=== PATIENT | male | born 1980 | race American Indian/Alaskan Native ===

== ENCOUNTER → 2018-03-13 09:55 | Outpatient (CLI) | payer OTHER, SELFPAY ==
--- NOTE | 2018-03-13 | DI.RAD.S_ITS ---
PROCEDURE: XR CHEST 2V INDICATIONS: COUGH,HISTORY OF SMOKING TECHNIQUE: 2 views of the chest were acquired. COMPARISON: [facility], , CHEST 1 VIEW, 01/20/2017, 15:13. FINDINGS: Surgical changes and devices: None. Lungs and pleura: No pleural effusions or pneumothorax. Lungs are clear. Mediastinum: Mediastinal contours are normal. Heart size is normal. Bones and chest wall: No suspicious bony abnormalities. Soft tissues appear unremarkable. IMPRESSION: Normal. Dictated by: Jairo Fernandes M.D. on 03/13/2018 at 10:25 Approved by: Jairo Fernandes M.D. on 03/13/2018 at 10:26
== END ==
PROVIDERS: PCP Family Medicine; Visit Provider Family Medicine
DX: R05 Cough (principal); Z87.891 Personal history of nicotine dependence
CPT/HCPCS: 71046

== ENCOUNTER → 2020-06-02 16:08 | Outpatient (CLI) | payer OTHER, SELFPAY ==
--- NOTE | 2020-06-02 | DI.RAD.S_ITS ---
PROCEDURE: XR LUMBAR SPINE 2-3V INDICATIONS: LUMBAR STRAIN TECHNIQUE: 3 views of the lumbar spine were acquired. COMPARISON: [facility], , L-SPINE MINIMUM 4 VIEWS, 12/09/2016, 8:49. FINDINGS: Bones: 5 [id number] vertebrae are present. There is normal bony alignment. No vertebral body compression fractures. No suspicious bony lesions. There has been a mild degree of interval worsening of the moderately severe degenerative disc disease at L5-S1. Facet osteoarthritis at this level is [id number]. Soft tissues: Overlying bowel gas pattern is normal. No suspicious soft tissue calcifications. IMPRESSION: Interval worsening of the degenerative changes at the L5-S1 disc level, from November of 2016. No significant worsening in facet osteoarthritis. No compression fracture is seen. There may be spinal and foraminal stenosis at L5-S1. Dictated by: Jairo Fernandes M.D. on 06/02/2020 at 17:04 Approved by: Jairo Fernandes M.D. on 06/02/2020 at 17:05
== END ==
PROVIDERS: PCP Family Medicine; Referring Provider Family Medicine; Visit Provider Family Medicine
DX: M47.817 Spondylosis without myelopathy or radiculopathy, lumbosacral region (principal); M48.07 Spinal stenosis, lumbosacral region
CPT/HCPCS: 72100

== ENCOUNTER 2020-06-08 19:17 | Emergency (ER) | payer OTHER, SELFPAY ==
[2020-06-08 19:24] VITALS: BP 151/101; PULSE 88; RESP 16; TEMP 37; O2SAT 95; BMI 38.4
[2020-06-08 19:52] LABS: Add Manual Diff / Slide Review NO; Basophils Absolute Auto 0 /uL (0-100); Basophils Percent Auto 0.8 % (0-2); Eosinophils Absolute Auto 100 /uL (0-450); Eosinophils Percent Auto 1.5 % (2-4); Hematocrit 47.9 % (41-53); Hemoglobin 16.4 g/dL (13.5-17.5); Lymphocytes Absolute Auto 2400 /uL (1100-4500); Lymphocytes Percent Auto 40.2 % (25-40); Mean Corpuscular HGB Conc 34.2 % (30-36); Mean Corpuscular Hemoglobin 34.3 PG (26-34); Mean Corpuscular Volume 100.1 fL (80-100); Monocytes Absolute Auto 500 /uL (0-900); Neutrophils Absolute Auto 2900 /uL (1500-7000); Neutrophils Percent Auto 48.5 % (50-75); Platelet Count 167 X10^3/uL (150-400); Red Blood Cell Count 4.79 X10^6/uL (4.5-5.9); Red Cell Distribution Width 14.3 % (11.6-14.8)
[2020-06-08 20:04] LABS: UR Morphine/Opiate cutoff 300 Negative (Negative); Ur Creatinine Normal (Normal); Ur Specific Gravity Normal (Normal); Urine Amphetamines Negative (Negative); Urine Barbiturates Negative (Negative); Urine Benzodiazepines Negative (Negative); Urine Cocaine Negative (Negative); Urine MDMA Negative (Negative); Urine Methadone Negative (Negative); Urine Methamphetamines Negative (Negative); Urine Oxycodone Negative (Negative); Urine Phencyclidine Negative (Negative); Urine Tetrahydrocannabinol Negative (Negative); Urine Tricyclic Antidepressant Negative (Negative); Urine pH Normal (Normal)
[2020-06-08 20:05] LABS: Acetaminophen < 10 ug/mL (10-30); Alanine Aminotransferase 148 IU/L (<50); Albumin 4.6 g/dL (3.5-5.0); Albumin Globulin Ratio 1.2 (1.0-2.8); Alkaline Phosphatase 77 U/L (38-126); Aspartate Aminotransferase 196 IU/L (17-59); BUN Creatinine Ratio 22.4 (6-22); Bilirubin Total 0.6 mg/dL (0.2-1.3); Bilirubin Unconjugated 0.4 mg/dL (0.0-1.1); Blood Urea Nitrogen 13 mg/dL (9-20); Calcium 8.5 mg/dL (8.4-10.2); Carbon Dioxide 27 mmol/L (22-32); Chloride 103 mmol/L (98-107); Estimated Glomerular Filt Rate > 60.0 mL/min (>60); Ethanol (ETOH) 283 mg/dL; Globulin 3.7 g/dL (1.7-4.1); Glucose 110 mg/dL (70-100); HEMOLYSIS < 15 (0-50); Lactate (Lactic Acid) 1.8 mmol/L (0.7-2.1); Potassium 3.7 mmol/L (3.4-5.1); Salicylate < 1.0 mg/dL (<20); Sodium 141 mmol/L (137-145); Total Protein 8.3 g/dL (6.3-8.2)
--- NOTE | 2020-06-08 20:21 | ED.MEDCLEAR ---
HPI - Medical Clearance General Chief complaint: Medical Clearance Stated complaint: ALCOHOL DETOX Time Seen by Provider: 06/08/20 19:20 Source: patient Mode of arrival: Ambulatory Limitations: no limitations History of Present Illness HPI Narrative: 40-year-old male daily smoker with history of significant alcohol abuse presents with his in the chief complaint of alcohol abuse and a request for medical clearance prior to heading over to an alcohol detox program. The patient has been drinking a pt of liquor and multiple beers daily for many months. He has quit on his own in the past has gone through mild withdrawal symptoms but has never been hospitalized and has never had seizures. Additionally, he has never requested alcohol detox or rehab before. He complains of some mild headache and agitation but no other significant symptoms. His last consumption was approximately 1 hour prior to his arrival. He did call ahead and there are beds available, they asked for medical clearance 1st MD complaint: medical clearance requested Onset (ago): hour(s) Reason for Medical Clearance: intoxication Place: home Alleged Intoxication: Yes Compliant with Home Medications: Yes Treatments Prior to Arrival: none Related Information Home Medications Medication Instructions Recorded Confirmed ACETAMINOPHEN PO Q6HP PRN #0 01/20/17 Previous Rx's Medication Instructions Recorded ibuprofen 800 mg PO TIDP PRN #60 tab 12/09/16 ibuprofen 800 mg PO Q6HP PRN #40 tab 01/20/17 albuterol sulfate 90 mcg/actuation 2 inhalation INHALATION Q6-8H PRN 03/02/18 aerosol inhaler #18 gram azithromycin 250 mg tablet See Rx Instructions PO .COMPLEX #6 03/02/18 tab epinephrine 0.3 mg/0.3 mL 0.3 ml SUBCUT ONCE #2 each 03/02/18 injection, auto-injector ibuprofen 800 mg tablet 800 mg PO TID PRN #90 tab 03/02/18 methylprednisolone 4 mg tablets in See Rx Instructions PO PER PKG DIR 03/02/18 a dose pack #21 each lorazepam [Ativan] See Rx Instructions .ROUTE 06/08/20 .COMPLEX #19 tab Allergies Allergy/AdvReac Type Severity Reaction Status Date / Time bee venom protein (honey bee) Allergy Severe Swelling, Verified 06/08/20 19:26 Review of Systems Constitutional Constitutional: Denies chills, Denies fatigue, Denies fever(s), Denies frequent falls, Denies lethargy and Denies weakness Eyes Eyes: Denies change in vision, Denies eye discharge, Denies irritation and Denies loss of vision ENT Ears, Nose, Mouth, and Throat: Denies change in voice, Denies dizziness, Denies neck pain, Denies sore throat and Denies throat swelling Cardiovascular Cardiovascular: Denies chest pain, Denies irregular heart rhythm, Denies lightheadedness, Denies palpitations, Denies dyspnea, Denies dyspnea on exertion and Denies orthopnea Respiratory Respiratory: Denies cough, Denies dyspnea, Denies dyspnea on exertion and Denies wheezing Gastrointestinal Gastrointestinal: Denies abdominal pain, Denies change in bowel habits, Denies diarrhea, Denies nausea and Denies vomiting Musculoskeletal Musculoskeletal: Denies neck pain and Denies numbness Integumentary/Breasts Skin/Breast: Denies pruritus, Denies erythema, Denies rash and Denies wounds Neurologic Neurologic: Denies behavioral changes, Denies confusion, Denies dizziness, Denies frequent falls, Denies loss of vision, Denies numbness and Denies weakness Psychiatric Psychiatric: Denies anxiety, Denies behavioral changes, Denies confusion, Denies depression, Denies homicidal ideation and Denies suicidal ideation Endocrine Endocrine: Denies fatigue, Denies flushing and Denies palpitations Hematologic/Lymphatic Hematologic/Lymphatic: Denies easy bruising Allergic/Immunologic Allergic/Immunologic: Denies urticaria, Denies throat swelling and Denies wheezing Patient History Medical History Anxiety Arthritis Hand fracture (04/2007) Surgical History Hx of hand surgery (05/2007) Family History Father COPD (chronic obstructive pulmonary disease) Mother No problems noted. Brother No problems noted. Social History Smoking Status: Current every day smoker Tobacco: How many years used: 20 alcohol intake: current (1-2 beers a day, if any.) Smoking Status: Current every day smoker alcohol intake frequency: 3 or more drinks per day Alcohol type: beer and hard liquor Substance Use Type: does not use Exam Narrative Exam Narrative: GENERAL: [40] year old patient appears stated age. Well-nourished, well-developed patient, in mild distress. HEAD: Atraumatic. Normocephalic. EYES: Pupils equal round and reactive. Extraocular motions intact. No scleral icterus. No injection or drainage. ENT: Nose without bleeding, purulent drainage. Throat without erythema, tonsillar hypertrophy or exudate. Airway patent. NECK: Trachea midline. Non tender CARDIOVASCULAR: Regular rate and rhythm without murmurs, gallops, or rubs. RESPIRATORY: Clear to auscultation. Breath sounds equal bilaterally. No wheezes, rales, or rhonchi. GASTROINTESTINAL: Abdomen soft, non-tender, nondistended. EXTREMITIES: No edema or joint tenderness. BACK: Nontender without deformity or crepitance. No flank tenderness. NEURO: AOx3. SKIN: No rash or erythema of visible areas Initial Vital Signs Initial Vital Signs: Vital Signs Temperature 98.6 F 06/08/20 19:24 Pulse Rate 88 06/08/20 19:24 Respiratory Rate 16 06/08/20 19:24 Blood Pressure 151/101 H 06/08/20 19:24 Pulse Oximetry 95 06/08/20 19:24 MDM - Medical Clearance Lab Data Result diagrams: 06/08/20 19:25 06/08/20 19:25 Labs: Lab Results 06/08/20 06/08/20 06/08/20 Range/Units 19:25 19:25 19:25 WBC 6.0 (4.5-11.0) X10^3/uL RBC 4.79 (4.5-5.9) X10^6/uL Hgb 16.4 (13.5-17.5) g/dL Hct 47.9 (41-53) % MCV 100.1 H (80-100) fL MCH 34.3 H (26-34) PG MCHC 34.2 (30-36) % RDW 14.3 (11.6-14.8) % Plt Count 167 (150-400) X10^3/uL Neut % (Auto) 48.5 L (50-75) % Lymph % (Auto) 40.2 H (25-40) % Stephenson % (Auto) 9.0 (3-14) % Eos % (Auto) 1.5 L (2-4) % Baso % (Auto) 0.8 (0-2) % Neut # (Auto) 2900 (3399-6580) /uL Lymph # (Auto) 2400 (4927-9642) /uL Stephenson # (Auto) 500 (0-900) /uL Eos # (Auto) 100 (0-450) /uL Baso # (Auto) 0 (0-100) /uL Sodium 141 (137-145) mmol/L Potassium 3.7 (3.4-5.1) mmol/L Chloride 103 (98-107) mmol/L Carbon Dioxide 27 (22-32) mmol/L BUN 13 (9-20) mg/dL Creatinine 0.58 L (0.66-1.25) mg/dL Estimated GFR > 60.0 (>60) mL/min BUN/Creatinine Ratio 22.4 H (6-22) Glucose 110 H (70-100) mg/dL Lactate 1.8 (0.7-2.1) mmol/L Calcium 8.5 (8.4-10.2) mg/dL Total Bilirubin 0.6 (0.2-1.3) mg/dL Conjugated Bilirubin 0.0 (0.0-0.3) md/dL Unconjugated Bilirubin 0.4 (0.0-1.1) mg/dL AST 196 H (17-59) IU/L ALT 148 H (<50) IU/L Alkaline Phosphatase 77 (38-126) U/L Total Protein 8.3 H (6.3-8.2) g/dL Albumin 4.6 (3.5-5.0) g/dL Globulin 3.7 (1.7-4.1) g/dL Albumin/Globulin Ratio 1.2 (1.0-2.8) Salicylates < 1.0 (<20) mg/dL U Opiates 300ng/mL cut (Negative) Ur Oxycodone Screen (Negative) Urine Methadone Screen (Negative) Acetaminophen < 10 L (10-30) ug/mL Ur Barbiturates Screen (Negative) U Tricyclic Antidepress (Negative) Ur Phencyclidine Scrn (Negative) Ur Amphetamines Screen (Negative) U Methamphetamines Scrn (Negative) Ur MDMA Scrn (Ecstasy) (Negative) U Benzodiazepines Scrn (Negative) Urine Cocaine Screen (Negative) U Marijuana (THC) Screen (Negative) Ethyl Alcohol 283 H ( - 10) mg/dL COVID-19 PCR (Negative) 06/08/20 06/08/20 06/08/20 Range/Units 19:27 19:30 21:55 WBC (4.5-11.0) X10^3/uL RBC (4.5-5.9) X10^6/uL Hgb (13.5-17.5) g/dL Hct (41-53) % MCV (80-100) fL MCH (26-34) PG MCHC (30-36) % RDW (11.6-14.8) % Plt Count (150-400) X10^3/uL Neut % (Auto) (50-75) % Lymph % (Auto) (25-40) % Stephenson % (Auto) (3-14) % Eos % (Auto) (2-4) % Baso % (Auto) (0-2) % Neut # (Auto) (9150-2971) /uL Lymph # (Auto) (6252-7167) /uL Stephenson # (Auto) (0-900) /uL Eos # (Auto) (0-450) /uL Baso # (Auto) (0-100) /uL Sodium (137-145) mmol/L Potassium (3.4-5.1) mmol/L Chloride (98-107) mmol/L Carbon Dioxide (22-32) mmol/L BUN (9-20) mg/dL Creatinine (0.66-1.25) mg/dL Estimated GFR (>60) mL/min BUN/Creatinine Ratio (6-22) Glucose (70-100) mg/dL Lactate (0.7-2.1) mmol/L Calcium (8.4-10.2) mg/dL Total Bilirubin (0.2-1.3) mg/dL Conjugated Bilirubin (0.0-0.3) md/dL Unconjugated Bilirubin (0.0-1.1) mg/dL AST (17-59) IU/L ALT (<50) IU/L Alkaline Phosphatase (38-126) U/L Total Protein (6.3-8.2) g/dL Albumin (3.5-5.0) g/dL Globulin (1.7-4.1) g/dL Albumin/Globulin Ratio (1.0-2.8) Salicylates (<20) mg/dL U Opiates 300ng/mL cut Negative (Negative) Ur Oxycodone Screen Negative (Negative) Urine Methadone Screen Negative (Negative) Acetaminophen (10-30) ug/mL Ur Barbiturates Screen Negative (Negative) U Tricyclic Antidepress Negative (Negative) Ur Phencyclidine Scrn Negative (Negative) Ur Amphetamines Screen Negative (Negative) U Methamphetamines Scrn Negative (Negative) Ur MDMA Scrn (Ecstasy) Negative (Negative) U Benzodiazepines Scrn Negative (Negative) Urine Cocaine Screen Negative (Negative) U Marijuana (THC) Screen Negative (Negative) Ethyl Alcohol 244 H ( - 10) mg/dL COVID-19 PCR Negative (Negative) MDM Narrative Medical decision making narrative: [facility] for Alcohol Withdrawal from [facility] on 06/08/2020 All calculations should be rechecked by clinician prior to use RESULT SUMMARY: 6 points Patients with scores ?8 typically do not require medication for withdrawal. INPUTS: Nausea/vomiting ?> 0 = No nausea and no vomiting Tremor ?> 0 = No tremor Paroxysmal sweats ?> 0 = No sweat visible Anxiety ?> 3 = (More severe symptoms) Agitation ?> 2 = (More severe symptoms) Tactile disturbances ?> 0 = None Auditory disturbances ?> 0 = Not present Visual disturbances ?> 0 = Not present Headache/fullness in head ?> 1 = Very mild Orientation/clouding of sensorium ?> 0 = Oriented, can do serial additions Discharge Plan Departure Patient Disposition: Home Clinical Impression: Alcohol abuse Instructions: Alcohol Use Disorder Activity Restrictions/Additional Instructions: *You have been diagnosed with [ alcohol abuse YOU ARE MEDICALLY CLEARED FOR DETOX ] *What to do: *Take medications as directed *Proceed directly from here to [facility], they are expecting you. Any delays could potentially void your medical clearance *Return to ER if you should have any new, worsening or concerning symptoms Prescriptions: New lorazepam [Ativan] 1 mg tablet See Rx Instructions .ROUTE .COMPLEX Qty: 19 RF: 0 No Action azithromycin 250 mg tablet See Rx Instructions PO .COMPLEX Qty: 6 RF: 0 ibuprofen 800 mg tablet 800 mg PO TID PRN (Reason: pain) Qty: 90 RF: 2 epinephrine 0.3 mg/0.3 mL auto-injector 0.3 ml SUBCUT ONCE Qty: 2 RF: 1 methylprednisolone 4 mg tablets,dose pack See Rx Instructions PO PER PKG DIR Qty: 21 RF: 0 albuterol sulfate [ProAir HFA] 90 mcg/actuation HFA aerosol inhaler 2 inhalation INHALATION Q6-8H PRN (Reason: shortness of breath or wheezing) Qty: 18 RF: 0 ibuprofen 800 MG tablet 800 mg PO TIDP PRNQty: 60 RF: 1 ACETAMINOPHEN PO Q6HP PRNQty: 0 RF: 0 ibuprofen 800 MG tablet 800 mg PO Q6HP PRNQty: 40 RF: 0 Referrals: Jani Underwood MD [Primary Care Provider] -
[2020-06-08] MEDS: LORazepam 0.5 MG TABLET 2 MG PO ×2 (20:42→22:38)
[2020-06-08 20:46] LABS: COVID19 -Nasal RAPID Negative (Negative)
[2020-06-08 21:20] VITALS: BP 137/81; PULSE 78; RESP 20; O2SAT 100
[2020-06-08 22:11] LABS: Ethanol (ETOH) 244 mg/dL
[2020-06-08 22:44] VITALS: BP 129/82; PULSE 94; RESP 18; O2SAT 95
== END 2020-06-08 22:46 | disposition home or self-care (01) ==
PROVIDERS: Emergency Provider Emergency Medicine; PCP Family Medicine
DX: F10.129 Alcohol abuse with intoxication, unspecified (principal); Y90.8 Blood alcohol level of 240 mg/100 ml or more
CPT/HCPCS: 36415; 80053; 80076; 80305; 80320; 80329; 83605; 85025; 87635; 99281; 99283; G0480

== ENCOUNTER → 2020-10-23 07:58 | Outpatient (CLI) | payer OTHER, SELFPAY ==
[2020-10-23] MEDS: COVID-19 VACC, Ad26(JANSSEN)/PF 0.5 ML IM (08:03)
== END ==
PROVIDERS: PCP Family Medicine; Visit Provider Internal Medicine
DX: Z23 Encounter for immunization (principal)
CPT/HCPCS: 0031A; 91303

== ENCOUNTER 2021-02-20 17:44 | Emergency (ER) | payer OTHER, SELFPAY ==
[2021-02-20 17:48] VITALS: BP 137/93; PULSE 81; RESP 18; TEMP 36.3; O2SAT 98; BMI 39.4
--- NOTE | 2021-02-20 17:54 | DI.RAD.S_ITS ---
7PROCEDURE: XR HUMERUS RT 2V INDICATIONS: hyperextended/ popping sound/ pain TECHNIQUE: To views of the humerus were acquired. COMPARISON: None. FINDINGS: Bones: No fractures or dislocations. No suspicious bony lesions. Soft tissues: No suspicious soft tissue calcifications. IMPRESSION: No fracture. No osseous lesion. If symptoms and/or clinical suspicion for pathology persists, further assessment with repeat radiographs (7-10 days) or advanced imaging (e.g. CT, MRI or bone scan) should be considered. Dictated by: Nataly Mayer MD, PhD on 02/20/2021 at 18:28 Approved by: Nataly Mayer MD, PhD on 02/20/2021 at 18:28
--- NOTE | 2021-02-20 17:54 | DI.RAD.S_ITS ---
PROCEDURE: XR ELBOW RT MIN 3V INDICATIONS: hyperextended/ popping sound/ pain TECHNIQUE: 3 views of the elbow were acquired. COMPARISON: None. FINDINGS: Bones: No fractures or dislocations. No suspicious bony lesions. Soft tissues: No elbow joint effusion. No suspicious soft tissue calcifications. IMPRESSION: No fracture. No osseous lesion. If symptoms and/or clinical suspicion for pathology persists, further assessment with repeat radiographs (7-10 days) or advanced imaging (e.g. CT, MRI or bone scan) should be considered. Dictated by: Nataly Mayer MD, PhD on 02/20/2021 at 18:27 Approved by: Nataly Mayer MD, PhD on 02/20/2021 at 18:28
--- NOTE | 2021-02-20 18:34 | ED_ITS ---
HPI - Extremity Injury (Upper) General Chief Complaint: Extremity Injury, Upper Stated Complaint: elbow issue Time Seen by Provider: 02/20/21 18:34 Source: patient and family Mode of arrival: Ambulatory Limitations: no limitations History of Present Illness HPI narrative: This is a 40-year-old male who injured his right elbow. His brother was falling out of a truck and he attempted to catch him and caught about 50% of his brothers weight with his right upper extremity and felt a pop in his in her elbow. Patient has pain at the elbow particularly on the inside but also a little on the lateral side and has some swelling and a lump on the inner right elbow. Patient is able to flex and extend fully. He he is able to flex extend his wrist as well as his hand and elbow completely. He had a little bit of numbness and tingling initially which is improved. He has some chronic paresthesias in his right hand normally. He states it is almost completely back to baseline. Patient denies any other injury. He takes Lasix occasional as well as ibuprofen daily and occasional on antihistamine. He denies any other medical issues. Patient states he is allergic to some kind of antibiotic. He follows with Dr. Underwood. Related Data Home Medications Medication Instructions Recorded Confirmed ACETAMINOPHEN PO Q6HP PRN #0 01/20/17 Previous Rx's Medication Instructions Recorded ibuprofen 800 mg tablet 800 mg PO TIDP PRN #60 tab 12/09/16 ibuprofen 800 mg tablet 800 mg PO Q6HP PRN #40 tab 01/20/17 albuterol sulfate 90 mcg/actuation 2 inhalation INHALATION Q6-8H PRN 03/02/18 aerosol inhaler (ProAir HFA) #18 gram azithromycin 250 mg tablet See Rx Instructions PO .COMPLEX #6 03/02/18 tab epinephrine 0.3 mg/0.3 mL 0.3 ml SUBCUT ONCE #2 each 03/02/18 injection, auto-injector ibuprofen 800 mg tablet 800 mg PO TID PRN #90 tab 03/02/18 methylprednisolone 4 mg tablets in See Rx Instructions PO PER PKG DIR 03/02/18 a dose pack #21 each lorazepam 1 mg tablet (Ativan) See Rx Instructions .ROUTE 06/08/20 .COMPLEX #19 tab meloxicam 7.5 mg tablet 7.5 mg PO DAILY PRN #20 tab 02/20/21 tramadol 50 mg tablet (Ultram) 50 mg PO Q6H PRN #10 tab 02/20/21 Allergies Allergy/AdvReac Type Severity Reaction Status Date / Time bee venom protein (honey bee) Allergy Severe Swelling, Verified 06/08/20 19:26 Review of Systems Review of Systems ROS Unobtainable: All systems reviewed & are unremarkable except as noted in HPI and below Patient History Medical History Anxiety Arthritis Hand fracture (04/2007) Surgical History Hx of hand surgery (05/2007) Family History Father COPD (chronic obstructive pulmonary disease) Mother No problems noted. Brother No problems noted. Social History Smoking Status: Current every day smoker Tobacco: How many years used: 20 alcohol intake: current (1-2 beers a day, if any.) Smoking Status: Current every day smoker alcohol intake frequency: 3 or more drinks per day Alcohol type: beer and hard liquor Substance Use Type: does not use Exam Narrative Exam Narrative: GENERAL: Alert and oriented x three, male in mild distress. HEENT: Head normocephalic, atraumatic, EOMI, pupils reactive, face symmetric, moist mucous membranes NECK: Supple, full range of motion EXTREMITIES: Almost complete range of motion of the right elbow, patient does have tenderness on the medial side less so on the lateral, he does have some swelling particularly of the medial inner elbow and what feels to be a palpable lump, patient has full flexion extension at the wrist as well as fingers and normal abduction and adduction. Patient has sensation to light touch in all 5 fingers, hand and forearm. Patient has normal movement at the elbow. No other bony tenderness appreciated, no clubbing or edema otherwise appreciated. Neurovascularly intact NEUROLOGICAL: Cranial nerves II through XII grossly intact. Moving all extremities SKIN: Warm, dry, no petechiae, no rashes or lesions. Initial Vital Signs Initial Vital Signs: Vital Signs Temperature 97.3 F L 02/20/21 17:48 Pulse Rate 81 02/20/21 17:48 Respiratory Rate 18 02/20/21 17:48 Blood Pressure 137/93 H 02/20/21 17:48 Pulse Oximetry 98 02/20/21 17:48 Course Orders Ordered: ED Orders 02/20/21 17:54 XR elbow RT min 3V Stat XR humerus RT 2V Stat Discontinued Medications Ketorolac Tromethamine (Ketorolac 30 Mg/Ml Vial) 30 mg IM NOW ONE Stop: 02/20/21 18:46 Last Admin: 02/20/21 19:22 Dose: 30 mg Documented by: JONNY Tramadol HCl (Tramadol 50 Mg Prepack) 1 bottle MISC SEEINSTR ONE Stop: 02/20/21 19:25 Last Admin: 02/20/21 19:27 Dose: 1 bottle Documented by: JONNY Vital Signs Vital signs: Vital Signs - 8 hr 02/20/21 17:48 02/20/21 19:00 Temperature 97.3 F L Pulse Rate 81 18 L Respiratory Rate 18 18 Blood Pressure 137/93 H 109/70 Pulse Oximetry 98 97 MDM - Extremity Injury (Upper) Imaging Data Extremity x-ray #1: Radiologist's Impression: [address] [id number] ReportSigned Patient: Joseph Garvey JMR#: [id number]: 1980Acct:[id number]/Sex: 40 / MDate of Service: 02/20/21Loc: EDAccession Number: [id number] Procedure: XR humerus RT 2V Ordering Provider: Henrik Peck D.O.PROCEDURE: XR HUMERUS RT 2V INDICATIONS: hyperextended/ popping sound/ pain TECHNIQUE: To views of the humerus were acquired. COMPARISON: None. FINDINGS: Bones: No fractures or dislocations. No suspicious bony lesions. Soft tissues: No suspicious soft tissue calcifications. IMPRESSION: No fracture. No osseous lesion. If symptoms and/or clinical suspicion for pathology persists, further assessment with repeat radiographs (7-10 days) or advanced imaging (e.g. CT, MRI or bone scan) should be considered. Dictated by: Nataly Mayer MD, PhD on 02/20/2021 at 18:28 Approved by: Nataly Mayer MD, PhD on 02/20/2021 at 18:28 Extremity x-ray #2: Radiologist's Impression: [address] [id number] ReportSigned Patient: Joseph Garvey JMR#: [id number]: 1980Acct:[id number]/Sex: 40 / MDate of Service: 02/20/21Loc: EDAccession Number: [id number] Procedure: XR elbow RT min 3V Ordering Provider: Henrik Peck D.O. PROCEDURE: XR ELBOW RT MIN 3V INDICATIONS: hyperextended/ popping sound/ pain TECHNIQUE: 3 views of the elbow were acquired. COMPARISON: None. FINDINGS: Bones: No fractures or dislocations. No suspicious bony lesions. Soft tissues: No elbow joint effusion. No suspicious soft tissue calcifications. IMPRESSION: No fracture. No osseous lesion. If symptoms and/or clinical suspicion for pathology persists, further assessment with repeat radiographs (7-10 days) or advanced imaging (e.g. CT, MRI or bone scan) should be considered. Dictated by: Nataly Mayer MD, PhD on 02/20/2021 at 18:27 Approved by: Nataly Mayer MD, PhD on 02/20/2021 at 18:28 [facility] Narrative Medical decision making narrative: This is a 40-year-old male with right elbow pain with negative x-rays with an exam concerning for ligament or tendon injury. Patient was placed with compression wrap, sling for immobilization and given referral up with Orthopedic surgery. Pain medication was given here as well as prescription for meloxicam and short course of stronger narcotic pain medicine. Discharge Plan Departure Patient Disposition: Home Clinical Impression: Injury of elbow Instructions: DI for Elbow Sprain Activity Restrictions/Additional Instructions: I believe you have an injury to the ligaments or tendon of your elbow. Call Monday morning to set up follow-up with orthopedic surgery. Continue to wear sling and keep your elbow immobilized until you can see an orthopedic surgeon. May take meloxicam 1 tablet every 12 hours as needed for pain. Do not take Motrin or NSAIDs with this medication. You can take Tylenol up to a 1000 mg every 8 hours as needed. If this is not adequate you may take Ultram 1 tablet every 6 hours as needed for pain in addition. This medication can make you sleepy do not drive, perform hazardous activities or make any major decisions while taking it. This medication will make you constipated please take a stool softener once to twice daily until stools are soft and regular. [facility] was [facility] to [facility]. Splint Care: Keep splint clean and dry. Elevated affected body part to decrease swelling. OK to use ice pack on the affected body part. Use for 15-20 minutes each time, for 5-6x per day. If you develop worsening pain, numbness, tingling, discoloration of the affected body part, loosen the splint by loosening the CAMERON wrap, and either see your doctor for an urgent re-assessment, or return to the Emergency Department. Return to the Emergency Department for any new or worsening symptoms. Prescriptions: New meloxicam 7.5 mg tablet 7.5 mg PO DAILY PRN (Reason: pain) Qty: 20 RF: 0 tramadol [Ultram] 50 mg tablet 50 mg PO Q6H PRN (Reason: pain) Qty: 10 RF: 0 No Action azithromycin 250 mg tablet See Rx Instructions PO .COMPLEX Qty: 6 RF: 0 ibuprofen 800 mg tablet 800 mg PO TID PRN (Reason: pain) Qty: 90 RF: 2 epinephrine 0.3 mg/0.3 mL auto-injector 0.3 ml SUBCUT ONCE Qty: 2 RF: 1 methylprednisolone 4 mg tablets,dose pack See Rx Instructions PO PER PKG DIR Qty: 21 RF: 0 albuterol sulfate [ProAir HFA] 90 mcg/actuation HFA aerosol inhaler 2 inhalation INHALATION Q6-8H PRN (Reason: shortness of breath or wheezing) Qty: 18 RF: 0 ibuprofen 800 MG tablet 800 mg PO TIDP PRNQty: 60 RF: 1 ACETAMINOPHEN PO Q6HP PRNQty: 0 RF: 0 ibuprofen 800 MG tablet 800 mg PO Q6HP PRNQty: 40 RF: 0 lorazepam [Ativan] 1 mg tablet See Rx Instructions .ROUTE .COMPLEX Qty: 19 RF: 0 Referrals: Jani Underwood MD [Primary Care Provider] -
[2021-02-20 19:00] VITALS: BP 109/70; PULSE 18; RESP 18; O2SAT 97
[2021-02-20] MEDS: KETOROLAC 30 MG/ML VIAL IM (19:22)
[2021-02-20] MEDS: TRAMADOL 50 MG PREPACK 1 BOTTLE MISC (19:27)
== END 2021-02-20 19:32 | disposition home or self-care (01) ==
PROVIDERS: Emergency Provider Emergency Medicine; PCP Family Medicine
DX: S59.901A Unspecified injury of right elbow, initial encounter (principal); W19.XXXA Unspecified fall, initial encounter
CPT/HCPCS: 73060; 73080; 96372; 99283; J1885

== ENCOUNTER → 2021-04-30 08:06 | Outpatient (CLI) | payer OTHER, SELFPAY ==
--- NOTE | 2021-04-30 | DI.RAD.S_ITS ---
PROCEDURE: XR KNEE RT 1TO2V INDICATIONS: KNEE PAIN TECHNIQUE: AP view of the right knee was obtained. COMPARISON: [facility], CR, XR KNEE LT 1TO2V, 04/30/2021, 8:24. FINDINGS: Bones: No fractures or dislocations. No suspicious bony lesions. The medial and lateral joint spaces appear maintained. Soft tissues: No suspicious soft tissue calcifications. IMPRESSION: No significant abnormality. Dictated by: Zach Zapien M.D. on 04/30/2021 at 9:18 Approved by: Zach Zapien M.D. on 04/30/2021 at 9:20
--- NOTE | 2021-04-30 | DI.RAD.S_ITS ---
PROCEDURE: XR KNEE LT 1TO2V INDICATIONS: KNEE PAIN TECHNIQUE: Single AP weight-bearing view of the left knee. COMPARISON: None. FINDINGS: Bones: No fractures or dislocations. No suspicious bony lesions. The medial and lateral joint spaces are maintained. Soft tissues: No joint effusion. No suspicious soft tissue calcifications. IMPRESSION: No significant abnormality. Dictated by: Zach Zapien M.D. on 04/30/2021 at 9:30 Approved by: Zach Zapien M.D. on 04/30/2021 at 9:30
[2021-04-30 09:43] LABS: Add Manual Diff / Slide Review NO; Basophils Absolute Auto 0 /uL (0-100); Basophils Percent Auto 0.6 % (0-2); Eosinophils Absolute Auto 100 /uL (0-450); Eosinophils Percent Auto 1.6 % (2-4); Hematocrit 45.8 % (41-53); Hemoglobin 15.2 g/dL (13.5-17.5); Lymphocytes Absolute Auto 1500 /uL (1100-4500); Lymphocytes Percent Auto 29.5 % (25-40); Mean Corpuscular HGB Conc 33.1 % (30-36); Mean Corpuscular Hemoglobin 30.4 PG (26-34); Mean Corpuscular Volume 91.8 fL (80-100); Monocytes Absolute Auto 400 /uL (0-900); Monocytes Percent Auto 8.2 % (3-14); Neutrophils Absolute Auto 3000 /uL (1500-7000); Neutrophils Percent Auto 60.1 % (50-75); Platelet Count 253 X10^3/uL (150-400); Red Blood Cell Count 4.99 X10^6/uL (4.5-5.9); Red Cell Distribution Width 14.3 % (11.6-14.8)
[2021-04-30 10:10] LABS: Erythrocyte Sedimentation Rate 9 MM/HR (0-15)
[2021-04-30 10:25] LABS: Alanine Aminotransferase 38 IU/L (<50); Albumin 4.4 g/dL (3.5-5.0); Albumin Globulin Ratio 1.5 (1.0-2.8); Alkaline Phosphatase 63 U/L (38-126); Aspartate Aminotransferase 31 IU/L (17-59); BUN Creatinine Ratio 18.2 (6-22); Bilirubin Total 0.4 mg/dL (0.2-1.3); Blood Urea Nitrogen 14 mg/dL (9-20); Calcium 9.8 mg/dL (8.4-10.2); Carbon Dioxide 29 mmol/L (22-32); Chloride 104 mmol/L (98-107); Estimated Glomerular Filt Rate > 60.0 mL/min (>60); Glucose 102 mg/dL (70-100); HEMOLYSIS < 15 (0-50); Potassium 4.8 mmol/L (3.4-5.1); Sodium 140 mmol/L (137-145); Total Protein 7.4 g/dL (6.3-8.2); Uric Acid 6.6 mg/dL (3.5-8.5)
[2021-04-30 10:29] LABS: Rheumatoid Factor < 8.6 IU/mL (<12.0)
[2021-04-30 10:56] LABS: Testosterone 332 ng/dL (132-813)
[2021-05-02 12:07] LABS: ANA Screen, IFA Negative (.)
== END ==
PROVIDERS: PCP Physician Assistant; Referring Provider Physician Assistant; Visit Provider Physician Assistant
DX: M25.561 Pain in right knee (principal); R53.83 Other fatigue; M25.50 Pain in unspecified joint; M25.562 Pain in left knee
CPT/HCPCS: 36415; 73560; 80053; 84403; 84550; 85025; 85651; 86038; 86430

== ENCOUNTER → 2021-08-03 12:45 | Outpatient (ROUT) | payer OTHER, SELFPAY ==
[2021-08-03 13:07] LABS: COVID19 -Nasal RAPID Negative (Negative)
== END ==
PROVIDERS: PCP Physician Assistant; Visit Provider Physician Assistant
DX: Z20.822 Contact with and (suspected) exposure to COVID-19 (principal)
CPT/HCPCS: 87635

== ENCOUNTER 2022-01-10 14:03 | Emergency (ER) | payer OTHER, SELFPAY ==
[2022-01-10] VITALS (11 sets, daily range): BP systolic 124–140; BP diastolic 75–98; PULSE 84–91; RESP 16–20; TEMP 36.4; O2SAT 89–97; BMI 38.7
--- NOTE | 2022-01-10 14:13 | DI.RAD.S_ITS ---
PROCEDURE: XR CHEST 1V INDICATIONS: chest pain TECHNIQUE: One view of the chest was acquired. COMPARISON: [facility], CR, XR CHEST 2V, 03/13/2018, 9:34. FINDINGS: Surgical changes and devices: None. Lungs and pleura: Lungs are clear. No pleural effusions or pneumothorax. Mediastinum: Mediastinal contours appear normal. Heart size is normal. Bones and chest wall: No suspicious bony lesions. Overlying soft tissues appear unremarkable. IMPRESSION: No acute cardiopulmonary disease process. Dictated by: Nataly Mayer MD, PhD on 01/10/2022 at 15:02 Approved by: Nataly Mayer MD, PhD on 01/10/2022 at 15:03
[2022-01-10 14:36] LABS: Add Manual Diff / Slide Review NO; Basophils Absolute Auto 0 /uL (0-100); Basophils Percent Auto 0.7 % (0-2); Eosinophils Absolute Auto 100 /uL (0-450); Eosinophils Percent Auto 1.3 % (2-4); Hematocrit 43.7 % (41-53); Hemoglobin 15.4 g/dL (13.5-17.5); Lymphocytes Absolute Auto 1800 /uL (1100-4500); Lymphocytes Percent Auto 40.5 % (25-40); Mean Corpuscular HGB Conc 35.2 % (30-36); Mean Corpuscular Hemoglobin 34.1 PG (26-34); Mean Corpuscular Volume 96.8 fL (80-100); Monocytes Absolute Auto 300 /uL (0-900); Monocytes Percent Auto 6.4 % (3-14); Neutrophils Absolute Auto 2300 /uL (1500-7000); Neutrophils Percent Auto 51.1 % (50-75); Platelet Count 190 X10^3/uL (150-400); Red Blood Cell Count 4.51 X10^6/uL (4.5-5.9); Red Cell Distribution Width 14.9 % (11.6-14.8); White Blood Cell Count 4.6 X10^3/uL (4.5-11.0)
--- NOTE | 2022-01-10 14:44 | DI.CT.S_ITS ---
PROCEDURE: CT HEAD/BRAIN WO CON INDICATIONS: syncope, etoh, fell hit head TECHNIQUE: Noncontrast 4.5 mm thick angled axial sections acquired from the foramen magnum to the vertex, with coronal and sagittal reformats. For radiation dose reduction, the following was used: automated exposure control, adjustment of mA and/or kV according to patient size. COMPARISON: None. FINDINGS: Image quality: Excellent. CSF spaces: Basal cisterns are patent. No extra-axial fluid collections. Ventricles are normal in size and shape. Brain: No midline shift. No intracranial masses or hemorrhage. Knight-white matter interface is normal. Skull and face: Calvarium and visualized facial bones are intact, without suspicious lesions. Sinuses: Visualized sinuses and mastoids are clear. IMPRESSION: No acute intracranial disease process. Dictated by: Nataly aMyer MD, PhD on 01/10/2022 at 14:59 Approved by: Nataly Mayer MD, PhD on 01/10/2022 at 15:01
[2022-01-10] MEDS: SODIUM CHLORIDE 0.9% 1,000 ML 1000 ML IV (14:46)
[2022-01-10 14:51] LABS: Alanine Aminotransferase 82 IU/L (<50); Albumin 4.5 g/dL (3.5-5.0); Albumin Globulin Ratio 1.4 (1.0-2.8); Alkaline Phosphatase 81 U/L (38-126); Aspartate Aminotransferase 141 IU/L (17-59); BUN Creatinine Ratio 10.1 (6-22); Bilirubin Total 0.4 mg/dL (0.2-1.3); Blood Urea Nitrogen 7 mg/dL (9-20); Calcium 8.2 mg/dL (8.4-10.2); Carbon Dioxide 25 mmol/L (22-32); Chloride 101 mmol/L (98-107); Creatine Kinase 257 U/L (55-170); Estimated Glomerular Filt Rate > 60 mL/min (>60); Globulin 3.2 g/dL (1.7-4.1); Glucose 175 mg/dL (70-100); HEMOLYSIS < 15 (0-50); Lipase 109 U/L (23-300); Magnesium 2.2 mg/dL (1.6-2.3); Potassium 3.5 mmol/L (3.4-5.1); Sodium 140 mmol/L (137-145); Total Protein 7.7 g/dL (6.3-8.2)
[2022-01-10 14:53] LABS: Ethanol (ETOH) 292 mg/dL
[2022-01-10 15:02] LABS: Troponin I < 0.012 ng/mL (0.01-0.034)
--- NOTE | 2022-01-10 15:14 | ED.ALCOHOL ---
HPI - Alcohol General Chief Complaint: Toxicology Problem Stated Complaint: Possible heat stroke- dizzy, altered LOC Time Seen by Provider: 01/10/22 14:50 Mode of arrival: Family Vehicle History of Present Illness HPI narrative: Patient is a 41-year-old male with history of asthma and alcoholism who presents today after syncopal episode. states that he went on quite a [place] this weekend drinking a lot. He today apparently had a syncopal episode refilled his head on a coffee table. Possible brief loss of consciousness. Patient does not remember the injury or event although he thinks he remembers falling into the laundry basket. She wanted him to be checked out. He has no nausea or vomiting. He is noted to have oxygen the 88-91% while lying down. He says he is mildly short of breath he also feels extremely anxious being in the emergency department. He denies any chest pain. No numbness tingling or weakness. No palpitations. He has detox from alcohol many times before on his own he has also gone to detox. He is not currently looking for detox. just wants him checked out. Related Data Home Medications Medication Instructions Recorded Confirmed ACETAMINOPHEN PO Q6HP PRN ##0 01/20/17 Previous Rx's Medication Instructions Recorded ibuprofen 800 mg tablet 800 mg PO TIDP PRN #60 tabs 12/09/16 ibuprofen 800 mg tablet 800 mg PO Q6HP PRN #40 tabs 01/20/17 albuterol sulfate 90 mcg/actuation 2 inhalation inhalation Q6-8H PRN 03/02/18 aerosol inhaler (ProAir HFA) shortness of breath or wheezing #18 grams azithromycin 250 mg tablet See Rx Instructions PO .COMPLEX #6 03/02/18 tabs epinephrine 0.3 mg/0.3 mL 0.3 ml SUBCUT ONCE #2 ea 03/02/18 injection, auto-injector ibuprofen 800 mg tablet 800 mg PO TID PRN pain #90 tabs 03/02/18 methylprednisolone 4 mg tablets in See Rx Instructions PO PER PKG DIR 03/02/18 a dose pack #21 ea lorazepam 1 mg tablet (Ativan) See Rx Instructions .Route 06/08/20 .COMPLEX #19 tabs meloxicam 7.5 mg tablet 7.5 mg PO DAILY PRN pain #20 tabs 02/20/21 tramadol 50 mg tablet (Ultram) 50 mg PO Q6H PRN pain #10 tabs 02/20/21 albuterol sulfate 90 mcg/actuation 2 puff inhalation Q4-6H PRN 01/10/22 aerosol inhaler shortness of breath or wheezing #8.5 grams Allergies Allergy/AdvReac Type Severity Reaction Status Date / Time bee venom protein (honey bee) Allergy Severe Swelling, Verified 01/10/22 14:12 Review of Systems Review of Systems Narrative: GENERAL: Denies chills, fatigue, malaise, fever, sweats, travel HEENT: Denies sinus pain, ear pain, sore throat, difficulty swallowing, neck pain RESPIRATORY: See HPI CARDIOVASCULAR: Denies chest pain, palpitations, orthopnea, edema GASTROINTESTINAL: Denies nausea, vomiting, abdominal pain, diarrhea, constipation, melena. : Denies dysuria, frequency, incontinence, hematuria, urinary retention, flank pain. MUSCULOSKELETAL: Denies weakness, joint pain, or bony pain SKIN: No rash, no erythema, no pruritus NEUROLOGIC:+ syncope, see HPI PSYCHIATRIC: + ETOH 12 point review of systems is negative except for those stated above and HPI Patient History Medical History Anxiety Arthritis Hand fracture (04/2007) Surgical History Hx of hand surgery (05/2007) Family History Father COPD (chronic obstructive pulmonary disease) Mother No problems noted. Brother No problems noted. Social History Smoking Status: Current every day smoker Tobacco: How many years used: 20 alcohol intake: current (1-2 beers a day, if any.) Smoking Status: Current every day smoker alcohol intake frequency: 3 or more drinks per day Alcohol type: beer and hard liquor Substance Use Type: does not use Exam Initial Vital Signs Initial Vital Signs: Vital Signs Temperature 97.6 F 01/10/22 14:08 Pulse Rate 91 H 01/10/22 14:08 Respiratory Rate 16 01/10/22 14:08 Blood Pressure 134/94 H 01/10/22 14:08 Pulse Oximetry 97 01/10/22 14:08 Oxygen Delivery Method 01/10/22 14:08 GENERAL: Alert well-appearing 41-year-old and in no acute distress. HEENT: Head atraumatic,EOMI, pupils reactive, face symmetric, moist mucous membranes CARDIOVASCULAR: Regular rate and rhythm without murmurs, rubs or gallops. RESPIRATORY: Breath sounds equal bilaterally, no wheezes rales or rhonchi. ABDOMEN: Soft, nontender. Normoactive bowel sounds all 4 quadrants. No guarding or rebound. EXTREMITIES: Normal range of motion, no clubbing or edema. Neurovascularly intact NEUROLOGICAL: Alert and oriented x4.Normal gait and speech. Legal File Clerk strength equal bilaterally SKIN: Warm, dry, no laceration, no petechiae, no rashes or lesions. Course Orders Ordered: ED Orders 01/10/22 14:13 XR chest 1V Stat Comprehensive Metabolic Panel Stat Ethanol (ETOH) Stat Lipase Stat Magnesium Stat Troponin & CK Cardiac Panel Stat EKG-12 Lead Stat 01/10/22 14:20 Complete Blood Count AUTO DIFF Stat 01/10/22 14:26 BNP [NT-proBNP (BNP-Adult 18+)] Stat D Dimer Stat 01/10/22 14:44 CT head/brain wo con Stat 01/10/22 15:56 COVID19 -Nasal RAPID/Pre-Proc Stat Discontinued Medications Albuterol/Ipratropium (Albuterol/Ipratropium 3 Ml Ampul) 3 ml INH NOW ONE Stop: 01/10/22 15:28 Last Admin: 01/10/22 15:45 Dose: 3 ml Documented By: BLAKE Sodium Chloride (Normal Saline 0.9%) 1,000 mls @ 1,000 mls/hr IV BOLUS ONE Stop: 01/10/22 15:35 Last Infusion: 01/10/22 15:54 Dose: 0 mls/hr Documented By: Admin: 01/10/22 14:46 Dose: 1,000 mls/hr Documented By: CHARMAINE Lorazepam (Lorazepam 2 Mg/Ml Inj) 1 mg IV NOW ONE Stop: 01/10/22 15:39 Last Admin: 01/10/22 15:53 Dose: 1 mg Documented By: MASSIMO Vital Signs Vital signs: Vital Signs - 8 hr 01/10/22 14:08 01/10/22 15:45 01/10/22 14:50 Temperature 97.6 F Pulse Rate 91 H 84 Respiratory Rate 16 18 Blood Pressure 134/94 H Pulse Oximetry 97 94 95 Oxygen Delivery Method Room Air Room Air 01/10/22 14:51 01/10/22 14:51 01/10/22 15:00 Temperature Pulse Rate 88 Respiratory Rate Blood Pressure 134/95 H 127/87 Pulse Oximetry 92 Oxygen Delivery Method 01/10/22 15:00 01/10/22 15:30 01/10/22 15:30 Temperature Pulse Rate 86 90 Respiratory Rate Blood Pressure 139/98 H Pulse Oximetry 94 92 Oxygen Delivery Method 01/10/22 16:00 01/10/22 16:00 01/10/22 16:30 Temperature Pulse Rate 84 87 Respiratory Rate Blood Pressure 127/88 Pulse Oximetry 95 89 L Oxygen Delivery Method 01/10/22 16:31 01/10/22 16:31 01/10/22 17:00 Temperature Pulse Rate 86 Respiratory Rate Blood Pressure 140/96 H 128/89 Pulse Oximetry 89 L Oxygen Delivery Method 01/10/22 17:00 01/10/22 17:48 Temperature Pulse Rate 85 88 Respiratory Rate 20 Blood Pressure 124/75 Pulse Oximetry 92 96 Oxygen Delivery Method Room Air MDM - Alcohol Lab Data Result diagrams: 01/10/22 14:20 01/10/22 14:13 Labs: Lab Results 01/10/22 01/10/22 01/10/22 Range/Units 14:13 14:13 14:20 WBC 4.6 (4.5-11.0) X10^3/uL RBC 4.51 (4.5-5.9) X10^6/uL Hgb 15.4 (13.5-17.5) g/dL Hct 43.7 (41-53) % MCV 96.8 (80-100) fL MCH 34.1 H (26-34) PG MCHC 35.2 (30-36) % RDW 14.9 H (11.6-14.8) % Plt Count 190 (150-400) X10^3/uL Neut % (Auto) 51.1 (50-75) % Lymph % (Auto) 40.5 H (25-40) % Childress % (Auto) 6.4 (3-14) % Eos % (Auto) 1.3 L (2-4) % Baso % (Auto) 0.7 (0-2) % Neut # (Auto) 2300 (4545-4242) /uL Lymph # (Auto) 1800 (0033-5731) /uL Childress # (Auto) 300 (0-900) /uL Eos # (Auto) 100 (0-450) /uL Baso # (Auto) 0 (0-100) /uL D-Dimer (<230) ng/mL Sodium 140 (137-145) mmol/L Potassium 3.5 (3.4-5.1) mmol/L Chloride 101 (98-107) mmol/L Carbon Dioxide 25 (22-32) mmol/L BUN 7 L (9-20) mg/dL Creatinine 0.69 (0.66-1.25) mg/dL Estimated GFR > 60 (>60) mL/min BUN/Creatinine Ratio 10.1 (6-22) Glucose 175 H (70-100) mg/dL Calcium 8.2 L (8.4-10.2) mg/dL Magnesium 2.2 (1.6-2.3) mg/dL Total Bilirubin 0.4 (0.2-1.3) mg/dL AST 141 H (17-59) IU/L ALT 82 H (<50) IU/L Alkaline Phosphatase 81 (38-126) U/L Total Creatine Kinase 257 H (55-170) U/L CK-MB (CK-2) 1.68 (<2.37) ng/mL CK-MB (CK-2) Rel Index 0.7 L (1.5-5.0) % Troponin I < 0.012 (0.01-0.034) ng/mL NT-Pro-B Natriuret Pep (<125) pg/mL Total Protein 7.7 (6.3-8.2) g/dL Albumin 4.5 (3.5-5.0) g/dL Globulin 3.2 (1.7-4.1) g/dL Albumin/Globulin Ratio 1.4 (1.0-2.8) Lipase 109 (23-300) U/L Ethyl Alcohol 292 H ( - 10) mg/dL SARS-CoV-2 (PCR) (Negative) 01/10/22 01/10/22 01/10/22 Range/Units 14:26 14:26 15:56 WBC (4.5-11.0) X10^3/uL RBC (4.5-5.9) X10^6/uL Hgb (13.5-17.5) g/dL Hct (41-53) % MCV (80-100) fL MCH (26-34) PG MCHC (30-36) % RDW (11.6-14.8) % Plt Count (150-400) X10^3/uL Neut % (Auto) (50-75) % Lymph % (Auto) (25-40) % Childress % (Auto) (3-14) % Eos % (Auto) (2-4) % Baso % (Auto) (0-2) % Neut # (Auto) (6991-9317) /uL Lymph # (Auto) (2318-9765) /uL Childress # (Auto) (0-900) /uL Eos # (Auto) (0-450) /uL Baso # (Auto) (0-100) /uL D-Dimer < 200 (<230) ng/mL Sodium (137-145) mmol/L Potassium (3.4-5.1) mmol/L Chloride (98-107) mmol/L Carbon Dioxide (22-32) mmol/L BUN (9-20) mg/dL Creatinine (0.66-1.25) mg/dL Estimated GFR (>60) mL/min BUN/Creatinine Ratio (6-22) Glucose (70-100) mg/dL Calcium (8.4-10.2) mg/dL Magnesium (1.6-2.3) mg/dL Total Bilirubin (0.2-1.3) mg/dL AST (17-59) IU/L ALT (<50) IU/L Alkaline Phosphatase (38-126) U/L Total Creatine Kinase (55-170) U/L CK-MB (CK-2) (<2.37) ng/mL CK-MB (CK-2) Rel Index (1.5-5.0) % Troponin I (0.01-0.034) ng/mL NT-Pro-B Natriuret Pep < 11 (<125) pg/mL Total Protein (6.3-8.2) g/dL Albumin (3.5-5.0) g/dL Globulin (1.7-4.1) g/dL Albumin/Globulin Ratio (1.0-2.8) Lipase (23-300) U/L Ethyl Alcohol ( - 10) mg/dL SARS-CoV-2 (PCR) Negative (Negative) Imaging Data CT scan - head: Radiologist's Impressoin: Signed Patient: Joseph Garvey MR#: [id number] : 1980 Acct:[id number] Age/Sex: 41 / M Date of Service: 01/10/22 Loc: ED Accession Number: [id number] ?? Procedure: XR chest 1V Ordering Provider: Fozia Edmonds D.O. PROCEDURE:? XR CHEST 1V ? INDICATIONS:? chest pain ? TECHNIQUE:? One view of the chest was acquired.? ? COMPARISON:? [facility], , XR CHEST 2V, 03/13/2018, 9:34. ? FINDINGS:? ? Surgical changes and devices:? None.? ? Lungs and pleura:? Lungs are clear.? No pleural effusions or pneumothorax.? ? Mediastinum:? Mediastinal contours appear normal.? Heart size is normal.? ? Bones and chest wall:? No suspicious bony lesions.? Overlying soft tissues appear unremarkable.? ? IMPRESSION:? No acute cardiopulmonary disease process. ? ? Dictated by: Nataly Mayer MD, PhD on 01/10/2022 at 15:02 ? ? Approved by: Nataly Mayer MD, PhD on 01/10/2022 at 15:03 ? Chest x-ray: Radiologist's Impressoin: Patient: Joseph Garvey MR#: [id number] : 1980 Acct:[id number] Age/Sex: 41 / M Date of Service: 01/10/22 Loc: ED Accession Number: [id number] ?? Procedure: CT head/brain wo con Ordering Provider: Fozia Edmonds D.O. PROCEDURE:? CT HEAD/BRAIN WO CON ? INDICATIONS:? syncope, etoh, fell hit head ? TECHNIQUE:? Noncontrast 4.5 mm thick angled axial sections acquired from the foramen magnum to the vertex, with coronal and sagittal reformats.? For radiation dose reduction, the following was used:? automated exposure control, adjustment of mA and/or kV according to patient size.? ? COMPARISON:? None. ? FINDINGS:? Image quality:? Excellent.? ? CSF spaces:? Basal cisterns are patent.? No extra-axial fluid collections.? Ventricles are normal in size and shape.? ? Brain:? No midline shift.? No intracranial masses or hemorrhage.? Knight-white matter interface is normal.? ? Skull and face:? Calvarium and visualized facial bones are intact, without suspicious lesions.? ? Sinuses:? Visualized sinuses and mastoids are clear.? ? IMPRESSION:? No acute intracranial disease process. ? ? Dictated by: Nataly Mayer MD, PhD on 01/10/2022 at 14:59 ? MDM Narrative Medical decision making narrative: PATIENT PRESENTS AFTER SYNCOPAL IN HER SYNCOPAL EPISODE LIKELY DUE TO ALCOHOL INTOXICATION AND HEAT. HE HAS NO FOCAL DEFICITS. HEAD CT IS NEGATIVE. BLOOD WORK IS OVERALL REASSURING. HE IS NOTED TO BE HYPOXIC AT TIMES ESPECIALLY WHILE SLEEPING. IT GOT WORSE AFTER SOME ATIVAN. WHEN HE WAKES UP OXYGEN IMPROVES. NEGATIVE COVID NEGATIVE D-DIMER CHEST X-RAY IS NEGATIVE. Unlikely to be pulmonary embolism. HE HAD SOME MILD WHEEZING ON EXAM HE WAS GIVEN ALBUTEROL, which actually did help. Patient's troponin and BNP were negative no sign of congestive heart failure. Patient feels ready and able to go home. Discussed with him is slowly decreasing his alcohol intake and recommended detox for him. Discharge Plan Departure Patient Disposition: Home Clinical Impression: Alcoholic intoxication, Syncope Instructions: DI for Alcohol Use Disorder Activity Restrictions/Additional Instructions: *You have been diagnosed with alcohol intoxication, syncope *What to do: Recommend decreasing her alcohol very slowly over weeks. Recommend detox if needed. Please monitor your breathing. COVID test is negative today. Recommend using her inhaler regularly. *Continue to take medications as directed Albuterol 1-2 puffs every 4 hours if needed for shortness of breath or wheezing-> SENT TO [facility] *Follow up with your primary care provider in 2-3 days or call [phone] *Return to ER if you should have increasing shortness of breath, chest pain, recurrent episode of passing out, shakes or any new, worsening or concerning symptoms Prescriptions: New albuterol sulfate 90 mcg/actuation HFA aerosol inhaler 2 puff INHALATION Q4-6H PRN (Reason: shortness of breath or wheezing) Qty: 8.5 0RF No Action azithromycin 250 mg tablet See Rx Instructions PO .COMPLEX Qty: 6 0RF Dose Instruction: take 500 mg today (day 1), then 250 mg for 4 days (days 2-5) PO Rx Instructions: take 500 mg today (day 1), then 250 mg for 4 days (days 2-5) PO ibuprofen 800 mg tablet 800 mg PO TID PRN (Reason: pain) Qty: 90 2RF Rx Instructions: take with food and increased water epinephrine 0.3 mg/0.3 mL auto-injector 0.3 ml SUBCUT ONCE Qty: 2 1RF Rx Instructions: inject into anterolateral area of thigh (preferred); may repeat once in 5-15 minutes if necessary methylprednisolone 4 mg tablets,dose pack See Rx Instructions PO PER PKG DIR Qty: 21 0RF Dose Instruction: PO PER PKG DIR Rx Instructions: PO PER PKG DIR albuterol sulfate [ProAir HFA] 90 mcg/actuation HFA aerosol inhaler 2 inhalation INHALATION Q6-8H PRN (Reason: shortness of breath or wheezing) Qty: 18 0RF ibuprofen 800 MG tablet 800 mg PO TIDP PRNQty: 60 1RF ACETAMINOPHEN PO Q6HP PRNQty: 0 ibuprofen 800 MG tablet 800 mg PO Q6HP PRNQty: 40 0RF meloxicam 7.5 mg tablet 7.5 mg PO DAILY PRN (Reason: pain) Qty: 20 0RF tramadol [Ultram] 50 mg tablet 50 mg PO Q6H PRN (Reason: pain) Qty: 10 0RF lorazepam [Ativan] 1 mg tablet See Rx Instructions .ROUTE .COMPLEX Qty: 19 0RF Rx Instructions: Day 1: 2mg PO q6 Day 2: 2mg PO q8 Day 3: 2mg PO q12 Day 4: 1mg PO qhs #19 Referrals: Meghan Adams PA-C [Primary Care Provider] - Visit Report Forms: Patient Portal/API
[2022-01-10 15:17] LABS: CKMB % Relative Index 0.7 % (1.5-5.0); Creatine Kinase MB 1.68 ng/mL (<2.37)
[2022-01-10] MEDS: ALBUTEROL/IPRATROPIUM 3 ML AMPUL INH (15:45)
[2022-01-10] MEDS: LORazepam 2 MG/ML INJ 1 MG IV (15:53)
[2022-01-10 16:08] LABS: NT-proBNP (BNP-Adult 18+) < 11 pg/mL (<125)
[2022-01-10 16:44] LABS: COVID19 -Nasal RAPID Negative (Negative)
[2022-01-10 16:55] LABS: D Dimer < 200 ng/mL (<230)
== END 2022-01-10 17:48 | disposition home or self-care (01) ==
PROVIDERS: Emergency Provider Emergency Medicine; PCP Physician Assistant
DX: F10.129 Alcohol abuse with intoxication, unspecified (principal); Y90.8 Blood alcohol level of 240 mg/100 ml or more; S09.90XA Unspecified injury of head, initial encounter; R55 Syncope and collapse; R07.9 Chest pain, unspecified; Z20.822 Contact with and (suspected) exposure to COVID-19
CPT/HCPCS: 36415; 70450; 71045; 80053; 80320; 82550; 82553; 83690; 83735; 83880; 84484; 85025; 85379; 87635; 93005; 94640; 96361; 96374; 99284; C9803; J2060

== ENCOUNTER → 2022-03-12 07:57 | Outpatient (CLI) | payer OTHER, SELFPAY ==
[2022-03-12 09:43] LABS: Alanine Aminotransferase 159 IU/L (<50); Albumin Globulin Ratio 1.3 (1.0-2.8); Alkaline Phosphatase 73 U/L (38-126); Aspartate Aminotransferase 130 IU/L (17-59); BUN Creatinine Ratio 13.8 (6-22); Bilirubin Total 0.4 mg/dL (0.2-1.3); Blood Urea Nitrogen 9 mg/dL (9-20); Calcium 9.1 mg/dL (8.4-10.2); Carbon Dioxide 25 mmol/L (22-32); Chloride 105 mmol/L (98-107); Cholesterol 186 mg/dL (140-199); Estimated Glomerular Filt Rate > 60 mL/min (>60); Globulin 3.2 g/dL (1.7-4.1); Glucose 99 mg/dL (70-100); HDL Cholesterol 33 mg/dL (40-60); HEMOLYSIS < 15 (0-50); LDL Cholesterol Calculated 131 mg/dL (<100); Potassium 4.7 mmol/L (3.4-5.1); Sodium 137 mmol/L (137-145); Total Protein 7.2 g/dL (6.3-8.2); Triglycerides 110 mg/dL (35-150)
[2022-03-12 09:57] LABS: Vitamin D 25 Hydroxy (D3) 43.4 ng/mL (30.0-100.0)
[2022-03-12 10:12] LABS: Thyroid Stimulating Hormone 1.12 uIU/mL (0.47-4.68)
[2022-03-12 10:34] LABS: Vitamin B12 636 pg/mL (239-931)
[2022-03-22 16:32] LABS: Testosterone Free 10.69 ng/dL (5.00-21.00); Testosterone Total 464.7 ng/dL (264.0-916.0)
== END ==
PROVIDERS: Referring Provider Family Medicine; Visit Provider Family Medicine
DX: R53.83 Other fatigue (principal); Z13.220 Encounter for screening for lipoid disorders; E56.9 Vitamin deficiency, unspecified
CPT/HCPCS: 36415; 80053; 80061; 82306; 82607; 84402; 84403; 84443

== ENCOUNTER → 2022-03-28 07:50 | Outpatient (CLI) | payer OTHER, SELFPAY ==
--- NOTE | 2022-03-28 07:52 | DI.US.S_ITS ---
PROCEDURE: US PERIPH VENOUS LOW EXTREM RT INDICATIONS: PAIN TECHNIQUE: Real-time imaging, as well as color and pulse Doppler interrogation, were performed of the lower extremity deep veins from the inguinal ligament to the popliteal fossa. COMPARISON: None. FINDINGS: The common femoral, femoral and popliteal veins are normally compressible, and free of intraluminal thrombus. Color and pulse Doppler demonstrate normal phasic intraluminal flow. There is normal augmentation response to distal compression maneuver. 48 mm diameter Harmon's cyst with internal debris. IMPRESSION: 1. No evidence of right lower extremity DVT. 2. Harmon's cyst. Dictated by: Fam Torrez M.D. on 03/28/2022 at 8:34 Approved by: Fam Torrez M.D. on 03/28/2022 at 8:34
== END ==
PROVIDERS: Referring Provider Physician Assistant Medical; Visit Provider Physician Assistant Medical
DX: M71.21 Synovial cyst of popliteal space [Baker], right knee (principal)
CPT/HCPCS: 93971

== ENCOUNTER → 2023-06-26 14:20 | Outpatient (ROUT) | payer OTHER, SELFPAY ==
[2023-06-26 15:27] LABS: Influenza A - CEPHEID Flu A POSITIVE (NEGATIVE); Influenza B - CEPHEID Flu B NEGATIVE (NEGATIVE); Respiratory Syncytial Virus Negative (Negative)
[2023-06-26 15:32] LABS: COVID-19 CEPHEID 4-PLEX PCR Negative (Negative)
== END ==
PROVIDERS: Visit Provider Family Medicine
DX: R05.9 Cough, unspecified (principal)
CPT/HCPCS: 0241U

== ENCOUNTER → 2023-07-11 10:38 | Outpatient (CLI) | payer OTHER, SELFPAY ==
--- NOTE | 2023-07-11 10:41 | DI.RAD.S_ITS ---
PROCEDURE: XR CHEST 2V INDICATIONS: DYSPNEA TECHNIQUE: 2 views of the chest were acquired. COMPARISON: [facility], CR, XR CHEST 1V, 01/10/2022, 14:20. [facility], CR, XR CHEST 2V, 03/13/2018, 9:34. FINDINGS: Surgical changes and devices: None. Lungs and pleura: Right middle lobe airspace opacity.. No pleural effusions or pneumothorax. Mediastinum: Mediastinal contours are normal. Heart size is normal. Bones and chest wall: No suspicious bony abnormalities. Soft tissues appear unremarkable. IMPRESSION: Focal airspace opacity involving the right middle lobe which may be related to atelectasis; however developing consolidation cannot be excluded and clinical correlation is recommended. Continued radiographic surveillance to resolution is recommended. Dictated by: Alex RAMESH Interpreted: Rafael Mullins MD on 07/11/2023 at 13:08 Approved by: Rafael Mullins M.D. on 07/11/2023 at 17:07
== END ==
PROVIDERS: Referring Provider Family Medicine; Visit Provider Family Medicine
DX: R06.09 Other forms of dyspnea (principal)
CPT/HCPCS: 71046